=== PATIENT | male | born 1990 | race Hispanic/Latino ===

== ENCOUNTER 2021-11-07 18:30 | Emergency (ER) | payer SELFPAY ==
[~2021-11-07] VITALS: Ht 170.2 cm; Wt 84.4 kg
[~2021-11-07 18:30] MED LIST: AUGMENTIN 875-1 EACH
[2021-11-07] MEDS ORDERED: ACETAMINOPHEN 1000 MG/100 ML IV STA (19:15)
[2021-11-07] MEDS ORDERED: SODIUM CHLORIDE 0.9% 1000ML 1,000 ML IV ONE (19:15)
[2021-11-07] MEDS ORDERED: DEXAMETHASONE SOD PHOS 10 MG/1 ML VIAL IV ONE (19:15)
[2021-11-07 19:31] LABS: BASOPHILS # (AUTO) 0.1 (0.0-0.1); BASOPHILS % 0.3 % (0.0-1.0); EOSINOPHILS % 0.1 % (0.0-6.0); HEMATOCRIT 49.7 % (38.2-49.6); HEMOGLOBIN 16.9 g/dL (14.0-18.0); LYMPHOCYTES # (AUTO) 2.4 (1.0-3.2); MEAN CORPUSCULAR HEMOGLOBIN 30.6 pg (28-32); MEAN CORPUSCULAR VOLUME 89.9 fL (81-99); MONOCYTES # (AUTO) 1.7 (0.2-0.8); MONOCYTES % 9.9 % (4.4-11.3); NEUTROPHILS # (AUTO) 12.7 (2.1-6.9); NEUTROPHILS % 75.2 % (38.7-80.0); PLATELET COUNT 296 x10e3/uL (140-360); RED BLOOD COUNT 5.53 x10e6/uL (4.3-5.7); RED CELL DISTRIBUTION WIDTH 12.7 % (11.7-14.4)
[2021-11-07 19:48] LABS: ALBUMIN 3.9 g/dL (3.5-5.0); ALBUMIN/GLOBULIN RATIO 0.7 (0.8-2.0); ANION GAP 19.2 mmol/L (8-16); CALCIUM 10.4 mg/dL (8.4-10.2); CREATININE, SERUM 1.06 mg/dL (0.72-1.25); POTASSIUM 4.2 mmol/L (3.5-5.1)
[2021-11-07] MEDS ORDERED: IOPAMIDOL 370 MG/ML 100 ML INFUS..BTL INJ ONE (20:06)
[2021-11-08 01:47] VITALS: BP 127/74
== END 2021-11-08 01:38 | disposition other institution (70) ==
LOC: ER 18:49
DX: R50.9 Fever, unspecified (principal); J36 Peritonsillar abscess; Z20.822 Contact with and (suspected) exposure to COVID-19
CPT/HCPCS: 36415; 70491; 80053; 83518; 83605; 85025; 87040; 99284; J0131; J0692; J1100; J7030; Q9967; U0002